=== PATIENT | female | born 1985 | race Two or more races ===

== ENCOUNTER → 2019-01-14 | Outpatient (CLI) | payer OTHER | END | disposition home or self-care (01) | LOC: PRENATAL 13:20 | DX: O28.1 Abnormal biochemical finding on antenatal screening of mother (principal); O35.3XX1 Maternal care for (suspected) damage to fetus from viral disease in mother, fetus 1 ==

== ENCOUNTER → 2019-04-22 | Outpatient (CLI) | payer OTHER | END | disposition home or self-care (01) | LOC: PRENATAL 13:00 | DX: O36.8191 Decreased fetal movements, unspecified trimester, fetus 1 (principal); O26.843 Uterine size-date discrepancy, third trimester; O35.3XX1 Maternal care for (suspected) damage to fetus from viral disease in mother, fetus 1 ==

== ENCOUNTER 2024-03-31 13:14 | Outpatient (CLI) | payer OTHER | END 2024-03-31 13:16 | disposition home or self-care (01) | LOC: PRENATAL 13:14 | PROVIDERS: ATTEND Obstetrics & Gynecology Maternal & Fetal Medicine | DX: O44.00 Complete placenta previa NOS or without hemorrhage, unspecified trimester (principal); O09.529 Supervision of elderly multigravida, unspecified trimester; Z3A.22 22 weeks gestation of pregnancy ==

== ENCOUNTER 2024-06-16 10:18 | Outpatient (CLI) | payer OTHER | END 2024-06-16 10:19 | disposition home or self-care (01) | LOC: PRENATAL 10:18 | PROVIDERS: ATTEND Obstetrics & Gynecology Maternal & Fetal Medicine | DX: O26.849 Uterine size-date discrepancy, unspecified trimester (principal); O36.8199 Decreased fetal movements, unspecified trimester, other fetus; O09.529 Supervision of elderly multigravida, unspecified trimester; Z3A.33 33 weeks gestation of pregnancy ==